=== PATIENT | male | born 1970 | race Caucasian/White ===

== ENCOUNTER 2016-08-30 11:43 | Day surgery (SDC) | payer OTHER ==
[~2016-08-30] VITALS: Ht 175.3 cm; Wt 77.0 kg
[~2016-08-30 11:43] MED LIST: CEFAZOLIN 1GM IVPB FOR OMNI 50 ML IV ONE; FENTANYL PF 100 MCG/2 ML VIAL. IV PRN; HYDROMORPHONE 2 MG/ML VIAL. IV PRN; IV RINGERS,LACTATED 1000ML 1,000 ML IV SCH; LIDOCAINE 1% 1 ML SYRINGE. ID PRN; MORPHINE SULFATE 2 MG/ML DISP.SYRIN. IV PRN; ONDANSETRON PF 4 MG/2 ML VIAL. IV PRN; PROCHLORPERAZINE 10 MG/2 ML VIAL. IV PRN
[2016-08-30] MEDS ORDERED: LISI-334 PO (12:41)
[2016-08-30] MEDS ORDERED: CEFAZOLIN 1GM IVPB FOR OMNI 50 ML IV ONE (12:43)
[2016-08-30] MEDS ORDERED: LIDOCAINE 2% 100 MG/5 ML DISP.SYRIN. ONE (13:58)
[2016-08-30] MEDS ORDERED: PROPOFOL 20 ML IV ONE (13:58)
[2016-08-30] MEDS ORDERED: FAMOTIDINE 20 MG/2 ML VIAL ONE (13:58)
[2016-08-30] MEDS ORDERED: ONDANSETRON PF 4 MG/2 ML VIAL. ONE (13:58)
[2016-08-30] MEDS ORDERED: DEXAMETHASONE SOD PHOS 20 MG/5 ML VIAL. ONE (13:58)
[2016-08-30] MEDS ORDERED: FENTANYL PF 100 MCG/2 ML VIAL. ONE (13:58)
[2016-08-30] MEDS ORDERED: KETOROLAC 30 MG/ML SYRINGE FOR OR. INJ ONE (13:58)
[2016-08-30] MEDS ORDERED: MIDAZOLAM HCL/PF 2 MG/2 ML VIAL. ONE (14:00)
[2016-08-30] MEDS ORDERED: BUPIVACAINE MPF 0.5% 30 ML VIAL. ONE (14:35)
[2016-08-30] MEDS ORDERED: EPHEDRINE PF IN SALINE 50 MG/5 ML DISP.SYRIN. IV ONE (14:55)
[2016-08-30] MEDS ORDERED: SEVOFLURANE 61 TO 120 MINUTES. IH ONE (15:39)
[2016-08-30] MEDS: FENTANYL PF 100 MCG/2 ML VIAL. IV PRN ×2 (15:42→15:55)
[2016-08-30 16:26] VITALS: BP 121/81
--- NOTE | 2016-08-30 17:10 | DISCH ---
DISCHARGE INSTRUCTIONS Condition on Discharge Condition on Discharge: Stable Activity After Discharge Activity Instructions for Disc: Activity as tolerated Other activity instructions: fine motor use eating drinking brush teeth etc ok Diet after Discharge Diet after Discharge: Regular Wound Incision Care Wound/Incision Care: Ice to area for comfort Other wound/incision instructi: change dressing in 3 days, may get wet in shower if no drainage Contacting the DRRenato after DC Call your doctor for: Concerns you may have Follow-Up Follow up with: Mohit 1 week CHAYITO AMAYA MD Aug 30, 2016 17:10
[2016-08-30] MEDS ORDERED: HYDR-965 PO (17:11)
--- NOTE | 2016-08-31 06:40 | PDOC ---
BRIEF OPERATIVE NOTE Date: Aug 30, 2016 Pre-Op Diagnosis left distal biceps rupture Post-Op Diagnosis same Procedure Performed exploration left distal biceps Surgeon Mohit Anesthesia Type: General Blood Loss 25cc Findings distal biceps intact Complications none CHAYITO AMAYA MD Aug 31, 2016 06:40
--- NOTE | 2016-08-31 14:26 | OP ---
DATE OF SURGERY: 08/30/2016 PREOPERATIVE DIAGNOSIS: Left distal biceps rupture. POSTOPERATIVE DIAGNOSIS: Intact left distal biceps insertion with partial injury at musculotendinous junction. PROCEDURE: Exploration of left biceps tendon. SURGEON: Kevin Rueda M.D. ANESTHESIA: General. ESTIMATED BLOOD LOSS: 25 mL COMPLICATIONS: None. OPERATIVE INDICATIONS: About 2 months ago, the patient reports an injury to his left upper extremity where he had ongoing pain and weakness, suspicious for a distal biceps injury as he had a change in his muscle contour and had difficulty with any significant lifting or as he remains very active lifting weights. He noticed a change in the contour of the biceps and weakness, he was evaluated in the clinic by nurse practitioner. A radiology report showed a avulsion of the distal biceps tendon from its insertion on the radial tuberosity with retraction to the antecubital fossa area. Clinically, he certainly displaced ongoing weakness and a deformity to the muscle, and the significance of the injury was reviewed with him by me in clinic and options, both operative and nonoperative, were covered. I told him that while nonoperative treatment is an option, the concerns associated with that would be the expected loss of about 40% of supination strength, a lesser amount of elbow flexion strength. Operative treatment would be expected, with good healing restore the supination strength and have a positive but lesser effect on his elbow flexion strength. We did talk about the possibility of nerve or blood vessel damage associated with the surgery, infection or other medical or other anesthetic complications. The fact that the surgery is more risky thus far out in terms of retraction of the tendon and potentially adhering to tissue near the nerves having difficulty potentially reattaching it at full length but mainly if there is retraction, the nearby nerves could be stretched due to traction or just freeing up the tendon itself. He acknowledged these risks and wants to proceed with distal biceps repair, having given informed consent. DESCRIPTION OF PROCEDURE: The patient was identified, procedure verified, patient placed in the supine position on the operating table. After adequate amounts of general anesthesia were administered, the left upper extremity was examined and prepped and draped in standard sterile fashion. No tourniquet was placed, but sterile tourniquet was available. After timeout was performed, the patient and procedure identified and verified, an incision was made just transversely just distal to the elbow flexion crease about 2 cm and blunt dissection was carried out down to the area where the course of the distal biceps tendon would be expected. To my surprise, the distal biceps tendon was actually intact along its course. In fact, on probing down to the insertion on the radial tuberosity, the tendon maintained its integrity as well as its diameter and there was excellent preservation of the insertion on the radial tuberosity itself. In fact, I ran a blunt probe around the area itself looking for weakness in the attachment and passed the gloved finger around the area as well directly palpating the insertion and really no breaks in continuity of the insertion were noted. The elbow when brought into pronation and full extension noted the distal biceps to tighten up significantly as expected and really was intact throughout its course. In fact, placing 2 gloved fingers around the tendon and placing maximum force along the area failed to have any affect at dislodging the tendon from its insertion or at any place along its course. Further blunt dissection up along the tendon towards the musculotendinous junction was carried out as well, verifying the tendon to be intact proximally except that there was a lump felt in the area of the musculotendinous junction making somewhat of an irregularity; however, the overall course of the tendon itself really landed into the proximal musculature with very, very minimal compromise and certainly intact ____ into the tissues. My diagnosis at this point is really an intact distal biceps tendon with partial injury at the musculotendinous junction that is intact and appears to be healing satisfactorily. I was very surprised as I checked the MRI reported preoperatively the same day and unequivocally it was stated that there was a full thickness rupture of the biceps tendon from the radial tuberosity with retraction in the level of the antecubital fossa, films were outside images. I rereviewed this information, reexamined the patient and at this point since there appeared to be no compromise of the distal insertion of the tendon and the patient had not had chronic pain prior to the traumatic injury indicating a tendinosis or rather significant compromise, I elected to leave the tendon intact, and note that the procedure was an exploration. The area was thoroughly irrigated with normal saline solution. Closure accomplished with buried Vicryl sutures, subcuticular Monocryl, Steri-Strips and Mastisol. Sterile dressings, soft dressings were applied. The patient was extubated and transferred to postop holding in stable condition having tolerated the procedure well. I discussed the intraoperative findings both with immediately postoperatively and with the patient himself when he was more awake and able to comprehend the significance of the findings. As a result, aside from protecting the incision, no restrictions on him. He is able to return to work as he requested a return to work note for next Friday. Followup planned in about a week. KEVIN RUEDA MD DR: MARGIE/luis JOB#: [id number] / [id number]
== END 2016-08-30 17:44 | disposition home or self-care (01) ==
LOC: SURG 11:43
PROVIDERS: ATTEND Orthopaedic Surgery
DX: S66.812A Strain of other specified muscles, fascia and tendons at wrist and hand level, left hand, initial encounter (principal); X58.XXXA Exposure to other specified factors, initial encounter; Y93.9 Activity, unspecified; Y92.9 Unspecified place or not applicable; Y99.9 Unspecified external cause status
CPT/HCPCS: 25999; J0690; J1100; J1885; J2250; J2405; J2704; J3010; J3490; S0028